=== PATIENT | male | born 1950 | race Two or more races ===

== ENCOUNTER → 2023-11-03 11:30 | Outpatient (CLI) | payer MEDICARE, SELFPAY ==
--- NOTE | 2023-11-03 11:36 | XR_ITS ---
FINAL REPORT CLINICAL HISTORY: foot pain FINDINGS: 3 weightbearing views of the left foot were obtained. There is no acute fracture or dislocation. There is a small plantar spur. There are hammertoe deformities of the second and third toes. IMPRESSION: No acute process. Reviewed, Interpreted and Dictated by Reji Hoskins MD Transcribed by Nilesh Gottlieb Authenticated and [facility]
--- NOTE | 2023-11-03 11:36 | XR_ITS ---
FINAL REPORT CLINICAL HISTORY: foot pain, bunion on right side FINDINGS: 3 weightbearing views of the right foot were obtained. There is no acute fracture or dislocation. There is a small plantar spur. There is a mild hammertoe deformity of the second toe. IMPRESSION: No acute process. Reviewed, Interpreted and Dictated by Reji Hoskins MD Transcribed by Nilesh Gottlieb Authenticated and [facility]
== END ==
PROVIDERS: PCP Family Medicine; Visit Provider Podiatrist
DX: M79.671 Pain in right foot (principal); M79.672 Pain in left foot
CPT/HCPCS: 73630